=== PATIENT | male | born 1985 | race Two or more races ===

== ENCOUNTER 2020-07-31 08:20 | Inpatient (IN) | payer MEDICAID, OTHER ==
[~2020-07-31] VITALS: Ht 175.3 cm; Wt 141.0 kg
[2020-07-31] MEDS ORDERED: KETOROLAC TROMETH 30 MG/ML 1ML VIAL IV ONE (09:15)
[2020-07-31] MEDS ORDERED: SODIUM CHLORIDE 0.9% 500 ML IVB ONE (09:15)
[2020-07-31] MEDS ORDERED: SODIUM CHLORIDE 0.9% 1,000 ML IV ONE (09:15)
[2020-07-31] MEDS ORDERED: METOCLOPRAMIDE HCL 5MG/ml INJ 2ml VIAL IV ONE (09:15)
[2020-07-31 09:30] LABS: Basophils # (auto) 0 10 ^3/uL (0-0.2); Basophils % (auto) 0.6 % (0.0-2.0); Eosinophils # (auto) 0.1 10 ^3/uL (0-0.8); Hematocrit 46.3 % (41.0-53.0); Hemoglobin 15.7 g/dL (13.5-17.5); Lymphocytes # (auto) 1.5 10 ^3/uL (0.4-5.4); Lymphocytes % (auto) 24.5 % (10.0-50.0); Mean Corpuscular Hemoglobin 29.9 pg (28.0-32.0); Mean Corpuscular Volume 87.8 fL (80.0-100.0); Monocytes # (auto) 0.4 10 ^3/uL (0-1.3); Monocytes % (auto) 6.4 % (0.0-12.0); Neutrophils % (auto) 66.5 % (37.0-80.0); Nucleated Red Blood Cells % 0.2 %; Platelet Count (auto) 244 10^3/uL (140-450); Red Blood Cells 5.27 10^6/uL (4.5-5.90); Red Cell Distribution Width 13.8 % (11.8-14.3)
[2020-07-31 09:41] LABS: Albumin 3.8 g/dL (3.4-5.0); Calcium 8.9 mg/dL (8.5-10.1); Magnesium 2.2 mg/dL (1.6-2.6); Potassium 4.3 mmol/L (3.5-5.1)
[2020-07-31 09:44] LABS: BUN/Creatinine Ratio 14.4; Bilirubin, Total 0.4 mg/dL (0.2-1.0); Total Protein 7.4 g/dL (6.4-8.2)
[2020-07-31] MEDS ORDERED: cefTRIAXone 1GM/50ML D5W 50 ML IV ONE (10:30)
[2020-07-31 11:55] LABS: Urine WBC None Seen /hpf (0 - 3)
[2020-07-31 12:29] LABS: Urine Bacteria NONE SEEN /hpf (None Seen); Urine Blood Negative /uL (Negative); Urine Mucus FEW (None Seen); Urine Specific Gravity 1.026 (1.001-1.035)
[2020-07-31 13:52] LABS: INR 0.99 (0.9-1.15); Partial Thromboplastin Time 27.3 sec (23.0-31.2)
[2020-07-31] MEDS ORDERED: CYAN100T7 PO (18:10)
[2020-07-31] MEDS ORDERED: TURM500C3 OR (18:10)
[2020-07-31] MEDS ORDERED: FLAX100020 PO (18:10)
[2020-07-31] MEDS ORDERED: ZINC220C8 PO (18:10)
[2020-07-31] MEDS ORDERED: POM (18:11)
[2020-07-31] MEDS ORDERED: MORPHINE SULF INJ 2 MG/ML SYRINGE 1ML IV PRN (18:15)
[2020-07-31] MEDS ORDERED: NITROGLYCERIN 0.4 MG SL TAB SL PRN (18:15)
[2020-07-31] MEDS: D5W/SOD CHL 0.45%/KCL 20MEQ 1,000 ML IV SCH (18:45)
--- NOTE | 2020-07-31 22:05 | NUR ---
Telemetry admit from [facility] admitted to Telemetry unit after SBAR received. Patient oriented to primary RN, unit, room, bed, and unit policies regarding patient care and visiting hours. Patient A/Ox4, no S/S SOB or distress, patient denies pain. Patient now on continuous telemetry monitoring, tele box #[id number] and telemetry reading on arrival to unit is 64 BPM. Patient weighed by bed scale, bed in lowest locked position with two side rails raised and call omalley within reach. Instructed on POC and encouraged to call if they need something, All questions and concerns addressed, patient verbalized understanding. Will continue to monitor Q1 hr and PRN.
[2020-07-31] MEDS: metroNIDAZOLE 500MG/100ML 100 ML IV SCH (22:30)
[2020-08-01] VITALS (8 sets, daily range): BP systolic 99–143; BP diastolic 62–85
[2020-08-01] MEDS: MORPHINE SULF INJ 2 MG/ML SYRINGE 1ML IV PRN (03:59)
[2020-08-01] MEDS: ONDANSETRON HCL 4 MG/2 ML VIAL IV PRN (04:00)
[2020-08-01] MEDS: metroNIDAZOLE 500MG/100ML 100 ML IV SCH ×2 (06:00→12:57)
[2020-08-01 06:28] LABS: Basophils # (auto) 0.1 10 ^3/uL (0-0.2); Basophils % (auto) 0.7 % (0.0-2.0); Eosinophils # (auto) 0.2 10 ^3/uL (0-0.8); Eosinophils % (auto) 2.6 % (0.0-7.0); Hematocrit 45.5 % (41.0-53.0); Hemoglobin 15.3 g/dL (13.5-17.5); Lymphocytes # (auto) 2.5 10 ^3/uL (0.4-5.4); Lymphocytes % (auto) 29.5 % (10.0-50.0); Mean Corpuscular Hemoglobin 29.8 pg (28.0-32.0); Mean Corpuscular Hgb Conc. 33.6 g/dL (32.0-36.0); Mean Corpuscular Volume 88.9 fL (80.0-100.0); Monocytes # (auto) 0.6 10 ^3/uL (0-1.3); Monocytes % (auto) 7.3 % (0.0-12.0); Neutrophils % (auto) 59.9 % (37.0-80.0); Platelet Count (auto) 244 10^3/uL (140-450); Red Blood Cells 5.12 10^6/uL (4.5-5.90); Red Cell Distribution Width 13.8 % (11.8-14.3); White Blood Cell 8.3 10^3/uL (4.4-10.8)
[2020-08-01 06:48] LABS: Albumin 3.4 g/dL (3.4-5.0); Calcium 8.5 mg/dL (8.5-10.1); Potassium 3.9 mmol/L (3.5-5.1)
[2020-08-01 06:52] LABS: Bilirubin, Total 0.4 mg/dL (0.2-1.0)
[2020-08-01] MEDS: D5W/SOD CHL 0.45%/KCL 20MEQ 1,000 ML IV SCH ×2 (07:03→17:24)
--- NOTE | 2020-08-01 07:32 | NUR ---
Opening Shift Note Assumed care of patient, awake and alert. No S/S of distress/SOB or pain. Instructed on POC and to call for assist PRN, will continue to monitor for changes Q1hr and PRN. Bed locked in lowest position with two side rails up and call light in reach.
[2020-08-01 08:48] LABS: BUN/Creatinine Ratio 12.8
[2020-08-01] MEDS ORDERED: cefTRIAXone 1GM/50ML D5W 50 ML IV SCH (09:00)
--- NOTE | 2020-08-01 09:40 | NUR ---
UPDATED FAMILY ON THE PLAN OF CARE.
[2020-08-01] MEDS ORDERED: PANTOPRAZOLE 40 MG/10 ML VIAL INJ IV ONE (12:15)
[2020-08-01] MEDS ORDERED: LIDOCAINE VISCOUS 2% 15ML UD ONE (13:19)
[2020-08-01] MEDS ORDERED: FLUMAZENIL 0.1 MG/ML INJ 10ML MDV IV ONE (13:19)
[2020-08-01] MEDS ORDERED: SODIUM CHLORIDE LOCK 10 ML ONE (13:19)
[2020-08-01] MEDS ORDERED: NALOXONE HCL 0.4 MG/ML VIAL ONE (13:19)
[2020-08-01] MEDS ORDERED: diphenhdrAMINE HCL 50 MG/1 ML VL ONE (13:20)
[2020-08-01] MEDS ORDERED: MIDAZOLAM HCL 5 MG/ML-1ML VIAL ONE (13:22)
[2020-08-01] MEDS: fentaNYL CITRATE 100 MCG/2 ML VL ONE ×2 (13:40→13:43)
[2020-08-01] MEDS: MIDAZOLAM HCL 5 MG/ML-1ML VIAL ONE ×2 (13:40→13:43)
[2020-08-01] MEDS: SUCRALFATE 1 GM/10 ML ORAL SUSP PO SCH ×2 (17:24→21:19)
--- NOTE | 2020-08-01 19:10 | NUR ---
OPENING SHIFT NOTE: Assumed care of patient. Patient A/O x 4, no s/s of SOB or distress, patient denies pain. Bed in lowest locked position with two side rails raised and call omalley within reach. Instructed on POC and encouraged to call for assistance, all questions and concerns addressed, patient verbalizes understanding. Will continue to monitor Q1 hr and PRN.
[2020-08-01] MEDS: PANTOPRAZOLE 40 MG TAB PO SCH (21:20)
[2020-08-02] MEDS: D5W/SOD CHL 0.45%/KCL 20MEQ 1,000 ML IV SCH ×2 (00:45→09:52)
[2020-08-02] MEDS: SUCRALFATE 1 GM/10 ML ORAL SUSP PO SCH ×3 (06:13→17:06)
--- NOTE | 2020-08-02 08:05 | NUR ---
Opening Shift Note Assumed care of patient, awake and alert laying in bed. No S/S of distress/SOB or pain. Instructed on POC and to call for assist PRN, will continue to monitor for changes Q1hr and PRN.
[2020-08-02 09:00] VITALS: BP 128/78
[2020-08-02] MEDS: PANTOPRAZOLE 40 MG TAB PO SCH (09:52)
[2020-08-02] MEDS ORDERED: PANTOPRAZOLE 40 MG/10 ML VIAL INJ IV SCH (10:00)
[2020-08-02] MEDS: MORPHINE SULF INJ 2 MG/ML SYRINGE 1ML IV PRN (10:43)
[2020-08-02] MEDS: ONDANSETRON HCL 4 MG/2 ML VIAL IV PRN (10:43)
--- NOTE | 2020-08-02 10:43 | NUR ---
Pain Patient complained of pain to right upper quadrant. Pain level 7/10. Medicated with morphine as ordered, will reassess as per protocol.
--- NOTE | 2020-08-02 11:15 | NUR ---
Assumed care of patient Received report from KERRY Ortiz. Patient is alert and oriented. Respirations are even and unlabored. No complaints of pain at this time. Reports discomfort to RUQ. Patient states he believes its secondary to duodenal ulcer found during EGD. Educated patient on lifestyle changes such as eliminating certain foods from diet. Patient verbalized understanding. Bed is low, locked with 2x side rails up. Call light is within reach. Will continue to monitor Q1hr and PRN.
--- NOTE | 2020-08-02 11:40 | NUR ---
Cleared by GI (Dr. Clifford) Cleared from GI standpoint.
[2020-08-02 12:29] VITALS: BP 108/68
[2020-08-02 15:30] VITALS: BP 117/65
--- NOTE | 2020-08-02 19:23 | NUR ---
DR MARLEY GAVE ORDERS TO DISCHARGE PATIENT. CALLED DR Parker MARTINEZ TO CALL IN PRESCRIPTIONS.
[2020-08-02] MEDS ORDERED: PANT40T PO (19:28)
[2020-08-02] MEDS ORDERED: SUCR1SUS10 PO (19:28)
--- NOTE | 2020-08-02 20:03 | NUR ---
Patient was discharged home, IV was discontinue, catheter intact, no signs of distress. All questions answered, patient is Alert and oriented, denies discomfort.
== END 2020-08-02 20:51 | disposition home or self-care (01) | DRG 241 ==
LOC: ER 08:20 → TELE 08:21 → UNDOADMIN 08:21 → TELE-WESTW 22:05 → WEST WING 08-01 16:45
PROVIDERS: ADMIT Surgery; ATTEND Internal Medicine
PROC: 0DB68ZX Excision of Stomach, Via Natural or Artificial Opening Endoscopic, Diagnostic (ICD-10-PCS; principal; 2020-08-01 13:37)
DX: K29.70 Gastritis, unspecified, without bleeding (principal); K29.80 Duodenitis without bleeding; K20.90 Esophagitis, unspecified without bleeding; K26.9 Duodenal ulcer, unspecified as acute or chronic, without hemorrhage or perforation; K35.80 Unspecified acute appendicitis; I10 Essential (primary) hypertension; E66.01 Morbid (severe) obesity due to excess calories; Z68.42 Body mass index [BMI] 45.0-49.9, adult; K76.0 Fatty (change of) liver, not elsewhere classified; R16.0 Hepatomegaly, not elsewhere classified; Z88.0 Allergy status to penicillin; Z20.828 Contact with and (suspected) exposure to other viral communicable diseases
CPT/HCPCS: 36415; 71045; 74176; 76705; 78226; 80053; 81001; 83690; 83735; 85025; 85610; 85730; 86850; 86900; 86901; 87426; 96361; 96365; 96375; C9113; G0378; J0696; J1885; J2250; J2405; J3490